=== PATIENT | male | born 1990 | race Two or more races ===

== ENCOUNTER 2023-04-14 22:58 | Emergency (ER) | payer OTHER ==
--- NOTE | 2023-04-14 23:52 | ED Physician Documentation ---
PD HPI CHEST PAIN - Stated complaint Stated Complaint: CHEST PX - Chief complaint Chief Complaint: Cardiac - History obtained from History obtained from: Patient - History of Present Illness Timing - onset: Today Timing - onset during: Light activity Timing - duration: Hours Timing - details: Gradual onset, Still present Pain level max: 9 Pain level now: 9 Quality: Pressure Location: Right chest Radiation: Back Improved by: Rest Worsened by: Inspiration, Movement, Position. No: Palpation Associated symptoms: No: Shortness of air, Diaphoresis, Nausea, Vomiting, Feeling faint / dizzy, General Weakness, Palpitations, Cough Similar symptoms before: Has not had sx before Recently seen: Not recently seen - Additional information Additional information: 32-year-old Jr Colindres was at work today when he developed pain in his right la teral chest that is worse with movement and inspiration. He states that at first the pain was episodic and it has subsequently become permanent and it is up to a 9 with movement. There is no tenderness to palpation over the area. He is not currently ill with anything specific. He does have a history of heavy lifting at work and has had a problem with his back and is seeing a chiropractor for that previously.He feels the symptoms are likely coming from his back despite the fact they are on the front of his chest. Review of Systems Constitutional: denies: Fever Eyes: denies: Decreased vision Ears: denies: Ear pain Nose: denies: Congestion Throat: denies: Sore throat Cardiac: reports: Chest pain / pressure. denies: Palpitations, Pedal edema, Calf pain Respiratory: denies: Dyspnea, Cough, Hemoptysis, Wheezing GI: denies: Abdominal Pain, Nausea, Vomiting, Constipation, Diarrhea : denies: Dysuria, Frequency Skin: denies: Rash Musculoskeletal: reports: Back pain. denies: Neck pain, Extremity pain Neurologic: denies: Generalized weakness, Focal weakness, Numbness PD PAST MEDICAL HISTORY - Past Medical History Past Medical History: No - Past Surgical History Past Surgical History: No - Present Medications Home Medications: Ambulatory Orders Medication Instructions Recorded Confirmed No Known Home Medications 04/14/23 04/14/23 - Allergies Allergies/Adverse Reactions: Allergies Allergy/AdvReac Type Severity Reaction Status Date / Time No Known Drug Allergies Allergy Verified 04/14/23 23:05 - Social History Does the pt smoke?: No Smoking Status: Never smoker Does the pt drink ETOH?: Yes PD ED PE NORMAL - Vitals Vital signs reviewed: Yes (hypertensive ) - General General: Alert and oriented X 3, Well developed/nourished, Other (Appears to be in pain with any movement.) - HEENT HEENT: Atraumatic, PERRL, EOMI - Neck Neck: Supple, no meningeal sign, No bony TTP - Cardiac Cardiac: RRR, No murmur - Respiratory Respiratory: No respiratory distress, Clear bilaterally, Other (The area of pain is over the lower ribs on the right side anteriorly without point tenderness. 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, No motor deficit, No sensory deficit, Normal speech Eye Opening: Spontaneous Motor: Obeys Commands Verbal: Oriented GCS Score: 15 - Psych Psych: Normal mood, Normal affect Results - Vitals Vitals: Vital Signs - 24 hr 04/14/23 04/14/23 04/15/23 22:59 23:14 00:13 Temperature 36.2 C L Heart Rate 64 64 64 Respiratory 18 15 20 Rate Blood Pressure 165/86 H 155/98 H 119/50 L O2 Saturation 99 99 100 04/15/23 01:07 Temperature Heart Rate 64 Respiratory 21 Rate Blood Pressure 143/84 H O2 Saturation 98 Oxygen O2 Source Room air - EKG (time done) 2309 EKG releavant findings:: EKG personally interpreted by author of this note. Relevant findings are: Rate: Rate (enter#) (68) Rhythm: NSR Ischemia: Other (j point elevation V2-3 flat T waves laterally) Other comments: Other comments (The computer reads Q-waves in anterior leads and I do not see these) Compare to prior EKG: Old EKG unavailable Computer interpretation: Disagree with computer - Labs Labs: Laboratory Tests 04/14/23 04/14/23 04/14/23 23:19 23:19 23:19 WBC 5.3 RBC 5.21 Hgb 16.1 Hct 48.3 MCV 92.7 MCH 30.9 MCHC 33.3 RDW 13.1 Plt Count 130 MPV 12.1 H Neut # (Auto) 3.3 Lymph # (Auto) 1.4 L [place] # (Auto) 0.5 Eos # (Auto) 0.1 Baso # (Auto) 0.0 Absolute Nucleated RBC 0.00 Nucleated RBC % 0.0 Sodium 138 Potassium 3.5 Chloride 102 Carbon Dioxide 30 Anion Gap 6.0 BUN 17 Creatinine 1.3 Estimated GFR (MDRD) 64 L Glucose 101 Calcium 9.8 Total Bilirubin 0.6 AST 24 ALT 23 Alkaline Phosphatase 53 Troponin I High Sens 3.3 Total Protein 7.6 Albumin 4.5 Globulin 3.1 Albumin/Globulin Ratio 1.5 Lipase 37 - Rads (name of study) chest Relevant Findings:: Prelim report reviewed (Impression: No acute cardiopulmonary process.), EMP independent interpretation of test PD Medical Decision Making - ED course Complexity details: reviewed results, re-evaluated patient, considered differential, d/w patient Reviewed Lab Results: We reviewed a complete blood count showing a normal white blood cell count normal hemoglobin hematocrit and platelets chemistries were unremarkable with normal electrolytes normal kidney and liver function and a high-sensitivity troponin was normal at 3.3.I interpreted these laboratory values to indicate a benign process and no evidence of coronary disease. ED course: 32-year-old male presents with pain to the right lateral chest with nontenderness and pain worse with movement. A chest x-ray that does not demonstrate any abnormality and the patient is not otherwise ill. He does a lot of heavy lifting and this appears to be a radicular pain. He is treated in the emergency room with dexamethasone and Toradol with marked improvement. He is instructed to follow-up with his primary care doctor or 2 things. #1 his radicular pain and potential physical therapy. #2 the patient has 2 brothers with a septal defect and he does have some abnormality to his electrocardiogram and I have asked him to follow-up to get an echocardiogram himself. Departure - Departure Disposition: 01 Home, Self Care Clinical Impression: Acute thoracic myofascial strain Qualifiers: Encounter type: initial encounter Qualified Code(s): S29.019A - Strain of muscle and tendon of unspecified wall of thorax, initial encounter Condition: Stable Instructions: Lumbar Radiculopathy, ED Neck Back Pain General Follow-Up: [facility] [Provider Group] Comments: Jr, today we evaluated the pain you are having in your chest and it appears this is coming from your back. This is termed a radicular pain and the instructions for lumbar radiculopathy are similar to thoracic radiculopathy. Today we gave you a medication that helped with your pain called Toradol. This is similar to ibuprofen. My recommendation is that if you have a recurrence of your pain to take something similar to this for relief. We have also given you a dose of dexamethasone which is a potent steroid that shrinks the swollen tissues. The expectation with this is that it will continue to have improvement for about 12 hours and last about 2 days. You may have recurrence of your symptoms and this may be related to further heavy lifting. The recommendation is to undergo physical therapy. Contact your primary care doctor. In addition, today on your electrocardiogram there were some abnormalities and with your family history of your brothers with a hole in their heart, my recommendation is to ask your primary care doctor to obtain an echocardiogram. Forms: PCP List Discharge Date/Time: 04/15/23 01:07
[2023-04-14 23:53] LABS: BASOPHILS % (AUTO) 0.4 %; EOSINOPHILS # (AUTO) 0.1 10^3/uL (0.0-0.7); EOSINOPHILS % (AUTO) 2.1 %; HCT - HEMATOCRIT 48.3 % (42.0-52.0); HGB - HEMOGLOBIN 16.1 g/dL (14.0-18.0); LYMPHOCYTES # (AUTO) 1.4 10^3/uL (1.5-3.5); LYMPHOCYTES % (AUTO) 25.5 %; MEAN CORPUSCULAR HEMOGLOBIN 30.9 pg (27.0-31.0); MEAN CORPUSCULAR HGB CONC 33.3 g/dL (32.0-36.0); MEAN CORPUSCULAR VOLUME 92.7 fL (80.0-94.0); MEAN PLATELET VOLUME 12.1 fL (7.4-11.4); MONOCYTES # (AUTO) 0.5 10^3/uL (0.0-1.0); MONOCYTES % (AUTO) 8.9 %; NEUTROPHILS # (AUTO) 3.3 10^3/uL (1.5-6.6); NEUTROPHILS % (AUTO) 62.9 %; PLT - PLATELET COUNT 130 10^3/uL (130-450); RED BLOOD COUNT 5.21 10^6/uL (4.70-6.10); RED CELL DISTRIBUTION WIDTH 13.1 % (12.0-15.0); WHITE BLOOD COUNT 5.3 x10^3/uL (4.8-10.8)
--- NOTE | 2023-04-15 00:05 | XRAY Report ---
PROCEDURE: Chest 1V INDICATIONS: chest pain TECHNIQUE: One view of the chest was acquired. COMPARISON: None. FINDINGS: Surgical changes and devices: None. Lungs and pleura: No pleural effusions or pneumothorax. Lungs are clear. Mediastinum: Mediastinal contours appear normal. Heart size is normal. Bones and chest wall: No suspicious bony lesions. Overlying soft tissues appear unremarkable. IMPRESSION: No acute cardiopulmonary process. Reviewed by: Jorge Phillips MD on 04/15/2023 12:04 AM [facility] Approved by: Jorge Phillips MD on 04/15/2023 12:04 AM [facility] Station ID: [id number]
[2023-04-15] MEDS: DEXAMETHASONE 10 MG/ML VIAL IVP STA (00:09)
[2023-04-15] MEDS: KETOROLAC 30 MG/ML VIAL IVP STA (00:10)
[2023-04-15 00:21] LABS: ALBUMIN 4.5 g/dL (3.2-5.5); ALBUMIN/GLOBULIN RATIO 1.5 (1.0-2.2); BILIRUBIN,TOTAL 0.6 mg/dL (0.2-1.0); CALCIUM 9.8 mg/dL (8.5-10.3); CREATININE 1.3 mg/dL (0.6-1.3); POTASSIUM 3.5 mmol/L (3.5-4.5); TOTAL PROTEIN 7.6 g/dL (6.4-8.9)
[2023-04-15 01:11] VITALS: BP 143/84; O2SAT 98
== END 2023-04-15 01:07 | disposition home or self-care (01) ==
LOC: ED 22:58
DX: S29.019A Strain of muscle and tendon of unspecified wall of thorax, initial encounter (principal); X50.9XXA Other and unspecified overexertion or strenuous movements or postures, initial encounter
CPT/HCPCS: 36415; 80053; 83690; 84484; 85025; 93005; 96374; 96375; 99284

== ENCOUNTER 2023-04-17 20:35 | Outpatient (CLI) | payer OTHER | END 2023-04-17 20:36 | disposition critical access hospital (66) | LOC: EMS 20:35 | DX: M54.50 Low back pain, unspecified (principal) | CPT/HCPCS: A0425; A0429 ==

== ENCOUNTER 2023-04-17 21:04 | Emergency (ER) | payer OTHER ==
[2023-04-17 21:24] VITALS: BP 174/103; O2SAT 100
--- NOTE | 2023-04-17 22:20 | ED Physician Documentation ---
History of Present Illness - Stated complaint Stated Complaint: LOWER BACK PX - Chief complaint Chief Complaint: Back Pain - History obtained from History obtained from: Patient - Additonal information Additional information: 32yM with pmh multiple prior visits for low back pain p/w pain that has been ongoing the past couple days radiating to the chest. patient does heavy lifting at work for the [employer]. he states he has had increased urinary frequency and urgency recently as well though is not incontinent of urine. denies dysuria. denies fever, saddle anesthesia, numbness or weakness. painful to ambulate, move, twist and turn. PD PAST MEDICAL HISTORY - Past Medical History Past Medical History: No - Past Surgical History Past Surgical History: No - Present Medications Home Medications: Ambulatory Orders Medication Instructions Recorded Confirmed No Known Home Medications 04/14/23 04/17/23 - Allergies Allergies/Adverse Reactions: Allergies Allergy/AdvReac Type Severity Reaction Status Date / Time No Known Drug Allergies Allergy Verified 04/17/23 21:17 - Social History Does the pt smoke?: No Smoking Status: Never smoker Does the pt drink ETOH?: Yes Does the pt have substance abuse?: No - Immunizations Immunizations are current?: Yes - POLST Patient has POLST: No PD ED PE NORMAL - Vitals Vital signs reviewed: Yes - General General: Alert and oriented X 3, No acute distress, Well developed/nourished - HEENT HEENT: Atraumatic, PERRL, EOMI - Neck Neck: No bony TTP - Cardiac Cardiac: RRR - Respiratory Respiratory: No respiratory distress, Clear bilaterally - Abdomen Abdomen: Non tender, Non distended - Back Back: No CVA TTP, Other (sacral spine discomfort to palpation along midline. otherwise nontender to palpation) - Derm Derm: Normal color, Warm and dry - Extremities Extremities: No deformity - Neuro Neuro: No motor deficit, No sensory deficit Results - Vitals Vitals: Vital Signs - 24 hr 04/17/23 21:05 Temperature 36.8 C Heart Rate 69 Respiratory 16 Rate Blood Pressure 174/103 H O2 Saturation 100 Oxygen O2 Source Room air - Labs Labs: Laboratory Tests 04/17/23 22:58 Urine Color LIGHT YELLOW Urine Clarity HAZY Urine pH 7.0 Ur Specific [place] 1.015 Urine Protein NEGATIVE Urine Glucose (UA) NEGATIVE Urine Ketones NEGATIVE Urine Occult Blood NEGATIVE Urine Nitrite NEGATIVE Urine Bilirubin NEGATIVE Urine Urobilinogen 0.2 (NORMAL) Ur Leukocyte Esterase NEGATIVE Urine RBC None Seen Urine WBC 0-3 Ur Squamous Epith Cells RARE Squamous Urine Bacteria Rare Urine Culture Comments NOT INDICATED PD Medical Decision Making - ED course ED course: 32yM presents with back pain ongoing for past several days, not resolving with otc meds. Patient is well appearing with benign exam aside from hypertension and lower back discomfort to palpation. He does not have saddle anesthesia, urinary or fecal incontinence or retention therefore doubt spinal cord impingement syndrome. IM toradol and decadron given to good effect. plan to f/u with pcm. work note provided with recommendation of time off and possible light duty thereafter. return precautions given. Departure - Departure Disposition: Home, Self Care Clinical Impression: Back pain Condition: Stable Instructions: ED Low Back Pain Injury Comments: You were seen in the emergency department for back pain and received 30mg IM toradol, an anti inflammatory pain medicine, and 10mg IM decadron, a steroid. Your urine testing was normal. Please follow-up with your primary care provider and return to the emergency department if you have any new or worsening symptoms or other concerns. Forms: Activity restrictions
[2023-04-17] MEDS: KETOROLAC 30 MG/ML VIAL IM STA (22:27)
[2023-04-17] MEDS: DEXAMETHASONE 10 MG/ML VIAL IM STA (22:28)
[2023-04-17 23:18] LABS: BILIRUBIN,URINE NEGATIVE (NEGATIVE); GLUCOSE, URINE (UA) NEGATIVE (NEGATIVE); KETONES,URINE (UA) NEGATIVE (NEGATIVE); LEUKOCYTE ESTERASE, URINE NEGATIVE (NEGATIVE); NITRITE,URINE NEGATIVE (NEGATIVE); OCCULT BLOOD,URINE NEGATIVE (NEGATIVE); PROTEIN,URINE NEGATIVE (NEGATIVE); UROBILINOGEN,URINE 0.2 (NORMAL) E.U./dL (NORMAL)
[2023-04-17 23:22] LABS: CLARITY,URINE HAZY (CLEAR)
[2023-04-17 23:45] LABS: BACTERIA,URINE Rare /HPF (None Seen); RBC,URINE None Seen /HPF (0-5); SQUAMOUS EPITHELIAL CELL,UR RARE Squamous (<= Few); WBC,URINE 0-3 /HPF (0-3)
== END 2023-04-18 | disposition home or self-care (01) ==
LOC: EDBD → EDUNIT# → ED 21:04
DX: M54.50 Low back pain, unspecified (principal); R03.0 Elevated blood-pressure reading, without diagnosis of hypertension
CPT/HCPCS: 81001; 87086; 96372; 99283